=== PATIENT | female | born 1985 | race Caucasian/White ===

== ENCOUNTER 2022-02-24 15:47 | Emergency (ER) | payer BC, OTHER ==
[2022-02-24 16:14] VITALS: BP 136/65; PULSE 74; TEMP 99.2; BMI 29.7
[2022-02-24] MEDS ORDERED: FAMOTIDINE 20 MG/50 ML IVPB 20 MG/50 ML MG IVPB ONE ×3 (16:36→16:45)
[2022-02-24] MEDS ORDERED: DEXAMETHASONE SOD PHOSPHATE 10 MG/1 ML VIAL IVPUSH ONE (16:45)
[2022-02-24] MEDS ORDERED: DEXAMETHASONE SOD PHOSPHATE 10 MG/1 ML VIAL ONE (16:51)
== END 2022-02-24 17:43 | disposition home or self-care (01) ==
LOC: FER 15:47
PROC: 3E033GC Introduction of Other Therapeutic Substance into Peripheral Vein, Percutaneous Approach (ICD-10-PCS; principal; 2022-02-24)
PROC: 3E033GC Introduction of Other Therapeutic Substance into Peripheral Vein, Percutaneous Approach (ICD-10-PCS; 2022-02-24)
DX: R09.82 Postnasal drip (principal); T78.40XA Allergy, unspecified, initial encounter
CPT/HCPCS: 99284-25

== ENCOUNTER 2022-03-15 09:35 | Emergency (ER) | payer OTHER ==
[2022-03-15 10:02] VITALS: BP 111/73; PULSE 68; TEMP 98.5; BMI 28.0
[2022-03-15 10:16] LABS: HCG,QUALITATIVE URINE Negative
[2022-03-15 10:42] LABS: EPITHELIAL CELLS RARE /hpf
[2022-03-15] MEDS ORDERED: IBUPROFEN 400 MG TABLET (FP) PO ONE ×2 (11:01→11:05)
[2022-03-15] MEDS ORDERED: ONDANSETRON *ODT* 4 MG TABLET SL ONE (11:34)
[2022-03-15] MEDS ORDERED: ONDANSETRON *ODT* 4 MG TABLET ONE (11:39)
[2022-03-15] MEDS ORDERED: ACETAMINOPHEN 325 MG TABLET (FP) PO ONE (13:39)
[2022-03-15] MEDS ORDERED: ACETAMINOPHEN 325 MG TABLET (FP) ONE (13:41)
== END 2022-03-15 13:57 | disposition home or self-care (01) ==
LOC: FER 09:35
DX: N94.6 Dysmenorrhea, unspecified (principal)
CPT/HCPCS: 76830-TC; 81003; 81015; 84703; 87086; 99284-25; Q0162

== ENCOUNTER 2023-02-14 21:37 | Emergency (ER) | payer OTHER ==
[2023-02-14 21:45] VITALS: BP 116/84; PULSE 71; RESP 18; TEMP 98.1; BMI 28.0
[2023-02-14] MEDS ORDERED: ONDANSETRON 4 MG/2 ML VIAL IVPUSH ONE (22:00)
[2023-02-14] MEDS ORDERED: SODIUM CHLORIDE 1,000 ML IV ONE (22:00)
[2023-02-14] MEDS ORDERED: ACETAMINOPHEN 1000 MG/100 ML BAG IVPB ONE (22:00)
[2023-02-14] MEDS ORDERED: ONDANSETRON 4 MG/2 ML VIAL ONE (22:02)
[2023-02-14] MEDS ORDERED: ACETAMINOPHEN INJECTION 100 ML IVPB ONE (22:02)
[2023-02-14 22:16] LABS: HEMOGLOBIN 14.6 G/dL (10.7-15.3); MCH 30.6 pg (25.7-33.7); MEAN CELL VOLUME 90.1 fl (80-96); MEAN PLT VOLUME 8.4 fl (7.5-11.1); RBC 4.77 10^6/uL (3.60-5.2); RDW 13.5 % (11.6-15.6); WHITE BLOOD COUNT 12.8 10^3/uL (4.0-10.8)
[2023-02-14 22:37] LABS: ALBUMIN 4.1 g/dl (3.4-5.0); BILIRUBIN,TOTAL 0.9 mg/dl (0.2-1); CREATININE 0.7 mg/dl (0.55-1.3)
== END 2023-02-14 23:20 | disposition home or self-care (01) ==
LOC: FER 21:37
PROC: 3E033NZ Introduction of Analgesics, Hypnotics, Sedatives into Peripheral Vein, Percutaneous Approach (ICD-10-PCS; principal; 2023-02-14)
PROC: 3E033GC Introduction of Other Therapeutic Substance into Peripheral Vein, Percutaneous Approach (ICD-10-PCS; 2023-02-14)
PROC: 3E0337Z Introduction of Electrolytic and Water Balance Substance into Peripheral Vein, Percutaneous Approach (ICD-10-PCS; 2023-02-14)
DX: R11.0 Nausea (principal); R51.9 Headache, unspecified
CPT/HCPCS: 36415; 80053; 85027; 99284-25

== ENCOUNTER 2023-05-23 10:00 | Emergency (ER) | payer OTHER ==
[2023-05-23 10:06] VITALS: BP 117/80; PULSE 88; RESP 16; TEMP 98.7; BMI 27.3
[2023-05-23] MEDS ORDERED: ONDANSETRON *ODT* 4 MG TABLET SL ONE (10:33)
[2023-05-23] MEDS ORDERED: ONDANSETRON *ODT* 4 MG TABLET ONE (10:41)
== END 2023-05-23 11:56 | disposition home or self-care (01) ==
LOC: FER 10:00
DX: R11.2 Nausea with vomiting, unspecified (principal); K52.9 Noninfective gastroenteritis and colitis, unspecified; R51.9 Headache, unspecified; R50.9 Fever, unspecified
CPT/HCPCS: 81025; 82962; 93005; 99284-25; Q0162

== ENCOUNTER 2023-08-29 11:16 | Emergency (ER) | payer OTHER ==
[2023-08-29 11:26] VITALS: BP 120/82; PULSE 80; RESP 16; TEMP 98.3; BMI 28.0
[2023-08-29] MEDS ORDERED: ONDANSETRON *ODT* 4 MG TABLET SL ONE ×2 (11:37→12:08)
[2023-08-29] MEDS ORDERED: ONDANSETRON *ODT* 4 MG TABLET ONE ×2 (11:47→12:09)
[2023-08-29] MEDS ORDERED: IBUPROFEN 400 MG TABLET (FP) PO ONE (12:06)
[2023-08-29] MEDS ORDERED: ACETAMINOPHEN 325 MG TABLET (FP) PO ONE (12:06)
== END 2023-08-29 14:27 | disposition home or self-care (01) ==
LOC: FER 11:16
DX: F41.9 Anxiety disorder, unspecified (principal); R11.2 Nausea with vomiting, unspecified; R51.9 Headache, unspecified; Z20.822 Contact with and (suspected) exposure to COVID-19
CPT/HCPCS: 0241U-QW; 93005; 99284-25; Q0162

== ENCOUNTER 2024-02-26 02:24 | Emergency (ER) | payer OTHER ==
[2024-02-26 02:33] VITALS: BP 126/87; PULSE 78; RESP 17; TEMP 98.5; BMI 28.0
[2024-02-26] MEDS ORDERED: KETOROLAC TROMETHAMINE 60 MG/2 ML VIAL ONE (02:34)
[2024-02-26] MEDS ORDERED: ONDANSETRON *ODT* 4 MG TABLET ONE (02:34)
[2024-02-26] MEDS: ONDANSETRON *ODT* 4 MG TABLET SL ONE (02:43)
[2024-02-26] MEDS: KETOROLAC TROMETHAMINE 60 MG/2 ML VIAL IM ONE (02:43)
== END 2024-02-26 03:21 | disposition home or self-care (01) ==
LOC: FER 02:24
PROC: 3E023GC Introduction of Other Therapeutic Substance into Muscle, Percutaneous Approach (ICD-10-PCS; principal; 2024-02-26)
DX: N94.6 Dysmenorrhea, unspecified (principal); R11.10 Vomiting, unspecified; R10.30 Lower abdominal pain, unspecified
CPT/HCPCS: 99284-25; Q0162

== ENCOUNTER 2024-03-18 23:17 | Emergency (ER) | payer OTHER ==
[2024-03-18 23:28] VITALS: BP 102/60; PULSE 70; RESP 18; TEMP 98.7; BMI 29.5
[2024-03-18] MEDS ORDERED: METHOCARBAMOL 500 MG TABLET ONE (23:30)
[2024-03-18] MEDS: METHOCARBAMOL 500 MG TABLET PO ONE (23:32)
== END 2024-03-18 23:43 | disposition home or self-care (01) ==
LOC: FER 23:17
DX: M62.838 Other muscle spasm (principal); M54.2 Cervicalgia
CPT/HCPCS: 99283-25

== ENCOUNTER 2024-04-12 18:02 | Emergency (ER) | payer OTHER ==
[2024-04-12] MEDS ORDERED: morphine SULFATE 4 MG/ML VIAL ONE (18:15)
[2024-04-12] MEDS ORDERED: ONDANSETRON 4 MG/2 ML VIAL ONE (18:16)
[2024-04-12] MEDS: ONDANSETRON 4 MG/2 ML VIAL IVPUSH ONE ×2 (18:35→19:05)
[2024-04-12] MEDS: SODIUM CHLORIDE 0.9% 500 ML INFUS.BAG IV ONE (18:35)
[2024-04-12] MEDS: morphine CARPU-JECT 4 MG/1 ML DISP.SYRIN IVPUSH ONE (18:45)
[2024-04-12 19:11] VITALS: BP 106/68; RESP 20; BMI 29.2
[2024-04-12] MEDS: DEXTROSE 50%-WATER - 25 GM/50 ML VIAL IVPUSH ONE (19:40)
[2024-04-12] MEDS ORDERED: DEXTROSE 50%-WATER 25 GM/50 ML DISP.SYRIN ONE (19:41)
[2024-04-12 21:35] VITALS: TEMP 98.8
== END 2024-04-12 22:39 | disposition home or self-care (01) ==
LOC: FER 18:02
PROC: 3E0337Z Introduction of Electrolytic and Water Balance Substance into Peripheral Vein, Percutaneous Approach (ICD-10-PCS; principal; 2024-04-12)
PROC: 3E033NZ Introduction of Analgesics, Hypnotics, Sedatives into Peripheral Vein, Percutaneous Approach (ICD-10-PCS; 2024-04-12)
PROC: 3E033GC Introduction of Other Therapeutic Substance into Peripheral Vein, Percutaneous Approach (ICD-10-PCS; 2024-04-12)
PROC: 3E033GC Introduction of Other Therapeutic Substance into Peripheral Vein, Percutaneous Approach (ICD-10-PCS; 2024-04-12)
DX: D25.9 Leiomyoma of uterus, unspecified (principal); R10.30 Lower abdominal pain, unspecified; R11.2 Nausea with vomiting, unspecified
CPT/HCPCS: 76830-TC; 99284-25

== ENCOUNTER 2024-08-16 20:17 | Emergency (ER) | payer OTHER ==
[2024-08-16 20:26] VITALS: BP 122/87; PULSE 70; RESP 16; TEMP 97.5; BMI 27.3
[2024-08-16] MEDS: SODIUM CHLORIDE 0.9% 500 ML INFUS.BAG IV ONE (20:45)
[2024-08-16 21:21] LABS: HEMATOCRIT 45.5 % (32.4-45.2); HEMOGLOBIN 14.8 G/dL (10.7-15.3); MCH 29.9 pg (25.7-33.7); MCHC 32.5 g/dl (32.0-36.0); MEAN CELL VOLUME 92.2 fl (80-96); MEAN PLT VOLUME 8.9 fl (7.5-11.1); PLATELET COUNT 255.6 10^3/uL (134-434); RBC 4.94 10^6/uL (3.60-5.2); RDW 14.2 % (11.6-15.6); WHITE BLOOD COUNT 12.1 10^3/uL (4.0-10.8)
[2024-08-16] MEDS: ACETAMINOPHEN 1000 MG/100 ML BAG IVPB ONE (21:25)
[2024-08-16] MEDS ORDERED: ACETAMINOPHEN INJECTION 100 ML ONE (21:26)
[2024-08-16] MEDS ORDERED: ONDANSETRON 4 MG/2 ML VIAL ONE (21:26)
[2024-08-16] MEDS ORDERED: METOCLOPRAMIDE HCL INJECTION 10 MG/2 ML VIAL ONE (21:26)
[2024-08-16] MEDS: ONDANSETRON 4 MG/2 ML VIAL IVPUSH ONE (21:30)
[2024-08-16 21:34] LABS: ALBUMIN 4.8 g/dl (3.4-5.0); BILIRUBIN,TOTAL 0.5 mg/dl (0.2-1); CALCIUM 10.2 mg/dl (8.5-10.1); CREATININE 0.8 mg/dl (0.6-1.3); TOT PROT 7.6 g/dl (6.4-8.2)
[2024-08-16] MEDS: METOCLOPRAMIDE HCL INJECTION 10 MG/2 ML VIAL IVPUSH ONE (21:41)
[2024-08-16 22:03] LABS: PLATELET ESTIMATE ADEQUATE
== END 2024-08-16 22:30 | disposition home or self-care (01) ==
LOC: FER 20:17
PROC: 3E033NZ Introduction of Analgesics, Hypnotics, Sedatives into Peripheral Vein, Percutaneous Approach (ICD-10-PCS; principal; 2024-08-16)
PROC: 3E033GC Introduction of Other Therapeutic Substance into Peripheral Vein, Percutaneous Approach (ICD-10-PCS; 2024-08-16)
PROC: 3E033GC Introduction of Other Therapeutic Substance into Peripheral Vein, Percutaneous Approach (ICD-10-PCS; 2024-08-16)
DX: R11.2 Nausea with vomiting, unspecified (principal); E86.0 Dehydration; R51.9 Headache, unspecified
CPT/HCPCS: 36415; 80053; 84436; 84443; 85025; 99284-25; J0131

== ENCOUNTER 2024-08-28 19:17 | Emergency (ER) | payer OTHER ==
[2024-08-28 19:27] VITALS: BP 137/79; PULSE 60; RESP 16; TEMP 98.2; BMI 27.3
[2024-08-28] MEDS ORDERED: KETOROLAC TROMETHAMINE 60 MG/2 ML VIAL ONE (19:33)
[2024-08-28] MEDS: KETOROLAC TROMETHAMINE 60 MG/2 ML VIAL IM ONE (19:40)
== END 2024-08-28 21:45 | disposition home or self-care (01) ==
LOC: FER 19:17
PROC: 3E0233Z Introduction of Anti-inflammatory into Muscle, Percutaneous Approach (ICD-10-PCS; principal; 2024-08-28)
PROC: 3E023GC Introduction of Other Therapeutic Substance into Muscle, Percutaneous Approach (ICD-10-PCS; 2024-08-28)
DX: N94.6 Dysmenorrhea, unspecified (principal)
CPT/HCPCS: 81025; 99284-25

== ENCOUNTER 2024-08-31 12:40 | Emergency (ER) | payer OTHER ==
[2024-08-31 12:58] VITALS: BP 110/80; PULSE 61; RESP 16; TEMP 97.3; BMI 27.3
== END 2024-08-31 15:51 | disposition home or self-care (01) ==
LOC: FER 12:40
PROC: 3E023GC Introduction of Other Therapeutic Substance into Muscle, Percutaneous Approach (ICD-10-PCS; principal; 2024-08-31)
DX: R09.81 Nasal congestion (principal); R09.82 Postnasal drip; R11.2 Nausea with vomiting, unspecified; J30.2 Other seasonal allergic rhinitis
CPT/HCPCS: 96372; 99284-25

== ENCOUNTER 2025-06-25 15:45 | Emergency (ER) | payer OTHER ==
[2025-06-25 15:59] VITALS: BP 130/91; PULSE 56; RESP 18; TEMP 98.5; BMI 26.6
[2025-06-25] MEDS ORDERED: ONDANSETRON 4 MG/2 ML VIAL ONE (16:55)
[2025-06-25] MEDS: ONDANSETRON 4 MG/2 ML VIAL IVPUSH ONE (17:00)
[2025-06-25] MEDS: SODIUM CHLORIDE 0.9% 500 ML INFUS.BAG IV ONE (17:00)
[2025-06-25 17:02] LABS: ABSOLUTE IMMATURE GRANULOCYTES 0.05 x10^3/uL (0.0-0.031); BASOPHILS # 0.06 x10^3/uL (0.01-0.08); EOSINOPHIL % 3.4 % (0.7-5.8); EOSINOPHILS # 0.38 x10^3/uL (0.04-0.36); MCHC 32.5 g/dl (32.2-35.5); MEAN CELL VOLUME 90.2 fl (79.4-94.8); MEAN PLT VOLUME 10.0 fl (9.4-12.3); MONOCYTE # 0.50 x10^3/uL (0.24-0.86); MONOCYTE % 4.5 % (4.7-12.5); RDW 11.7 % (12.1-16.8)
[2025-06-25] MEDS: morphine CARPU-JECT 4 MG/1 ML DISP.SYRIN IVPUSH ONE (17:11)
[2025-06-25 18:00] LABS: EPITHELIAL CELLS 0-5 /hpf
[2025-06-25] MEDS ORDERED: ACETAMINOPHEN 325 MG TABLET (FP) ONE (18:03)
[2025-06-25] MEDS: ACETAMINOPHEN 325 MG TABLET (FP) PO ONE (18:06)
[2025-06-25 18:24] LABS: ALK PHOS 45.0 U/L (45-117); CO2 24.0 mmol/L (21-32); CREATININE 0.7 mg/dl (0.6-1.3); GLUCOSE,RANDOM 96.0 mg/dl (74-106); SGOT/AST 14.0 U/L (15-37); SGPT/ALT 15.0 U/L (7-52); TOT PROT 7.2 g/dl (6.4-8.2)
[2025-06-25 23:10] LABS: HIV INTERPRETATION NEGATIVE (NEGATIVE)
[2025-06-25 23:11] LABS: HCV DIAGNOSTIC IN-HOUSE W/RFLX NON-REACTIVE (NONREACTIVE)
== END 2025-06-25 18:45 | disposition home or self-care (01) ==
LOC: FER 15:45
PROC: 3E033NZ Introduction of Analgesics, Hypnotics, Sedatives into Peripheral Vein, Percutaneous Approach (ICD-10-PCS; principal; 2025-06-25)
PROC: 3E033GC Introduction of Other Therapeutic Substance into Peripheral Vein, Percutaneous Approach (ICD-10-PCS; 2025-06-25)
DX: R10.2 Pelvic and perineal pain (principal); R11.0 Nausea; R10.31 Right lower quadrant pain; R10.32 Left lower quadrant pain; R10.33 Periumbilical pain
CPT/HCPCS: 36415; 76830-TC; 80053; 81003; 81015; 84703; 85025; 86140; 86803; 87086; 87389; 99285-25